=== PATIENT | female | born 1990 ===

== ENCOUNTER 2017-06-26 12:32 | Emergency (ER) | payer MEDICAID ==
[2017-06-26 12:33] VITALS: BMI 23.8
--- NOTE | 2017-06-26 13:52 | ED PDOC ---
HPI: General Adult Time Seen by Provider: 06/26/17 13:02 Chief Complaint (Nursing): Flu-like Symptoms Chief Complaint (Provider): Sore throat, cough, nasal congestion, headache x 1 week History Per: Patient History/Exam Limitations: no limitations Onset/Duration Of Symptoms: Days Have you had recent travel within the past 21 days to any of the following countries: [place], [place], [place] or [place]?: No Current Symptoms Are (Timing): Still Present Additional Complaint(s): PT states she came in today because the sore throat it new. Pt also reports intermittent nausea. No abdominal pain. No diarrhea. No fever Past Medical History Reviewed: Historical Data, Nursing Documentation, Vital Signs Vital Signs: Last Vital Signs Temp 98.9 F 06/26/17 12:42 Pulse 80 06/26/17 12:42 Resp 16 06/26/17 12:42 BP 122/77 06/26/17 12:42 Pulse Ox 99 06/26/17 12:42 - Medical History PMH: Asthma Denies: [place]'s Disease, Alzheimer's Disease, End Stage Renal Disease - Family History Family History: States: Unknown Family Hx - Home Medications Home Medications: Ambulatory Orders Medication Instructions Recorded Azithromycin [Zithromax] 250 mg PO DAILY #6 tab 06/26/17 - Allergies Allergies/Adverse Reactions: Allergies Allergy/AdvReac Type Severity Reaction Status Date / Time Penicillins Allergy ANAPHYLAXIS Verified 06/26/17 12:42 Review of Systems ROS Statement: Except As Marked, All Systems Reviewed And Found Negative Constitutional: Negative for: Fever, Chills Respiratory: Positive for: Cough Gastrointestinal: Negative for: Nausea, Vomiting, Diarrhea Physical Exam - Reviewed Nursing Documentation Reviewed: Yes Vital Signs Reviewed: Yes - Physical Exam Appears: Positive for: Well, Non-toxic, No Acute Distress Head Exam: Positive for: ATRAUMATIC, NORMAL INSPECTION, NORMOCEPHALIC Skin: Positive for: Normal Color, Warm, DRY Eye Exam: Positive for: Normal appearance, EOMI, PERRL ENT: Positive for: Normal ENT Inspection, Other ((+) tenderness of the sinuses to percussion). Negative for: Pharyngeal Erythema, Tonsillar Exudate, Tonsillar Swelling Neck: Positive for: Normal, Painless ROM Cardiovascular/Chest: Positive for: Regular Rate, Rhythm Respiratory: Positive for: CNT, Normal Breath Sounds Gastrointestinal/Abdominal: Positive for: Normal Exam, Bowel Sounds, Soft Back: Positive for: Normal Inspection Extremity: Positive for: Normal ROM Neurologic/Psych: Positive for: Alert, Oriented - ECG O2 Sat by Pulse Oximetry: 99 Disposition - Clinical Impression Clinical Impression: Sinusitis - Patient ED Disposition Is Patient to be Admitted: No Counseled Patient/Family Regarding: Diagnosis, Need For Followup, Rx Given - Disposition Disposition: Routine/Home Disposition Time: 13:51 Condition: GOOD Prescriptions: Azithromycin [Zithromax] 250 mg PO DAILY #6 tab Instructions: Sinusitis (ED) Forms: [facility] ([place]), [facility] ED School/Work Excuse
[2017-06-26 14:08] VITALS: BP 128/76; PULSE 78; RESP 17; TEMP 97.6; O2SAT 98
== END 2017-06-26 14:08 | disposition home or self-care (01) ==
LOC: H.ER 12:32
DX: J32.9 Chronic sinusitis, unspecified (principal); J45.909 Unspecified asthma, uncomplicated; Z88.0 Allergy status to penicillin